=== PATIENT | female | born 1980 | race Caucasian/White ===

== ENCOUNTER 2019-09-03 22:00 | Emergency (ER) | payer BC ==
[~2019-09-03] VITALS: Ht 162.6 cm; Wt 59.9 kg
[2019-09-03] MEDS ORDERED: BACLOFEN5 MG PO (23:36)
[2019-09-03] MEDS ORDERED: ULTRAM 50MG TAB50 MG PO (23:36)
[2019-09-03 23:46] VITALS: BP 107/65
== END 2019-09-03 23:51 | disposition home or self-care (01) ==
LOC: ER 22:00
DX: S39.012A Strain of muscle, fascia and tendon of lower back, initial encounter (principal); F17.210 Nicotine dependence, cigarettes, uncomplicated; V43.52XA Car driver injured in collision with other type car in traffic accident, initial encounter; Y92.89 Other specified places as the place of occurrence of the external cause; Y93.89 Activity, other specified; Y99.8 Other external cause status

== ENCOUNTER 2019-10-21 17:39 | Emergency (ER) | payer BC ==
[~2019-10-21] VITALS: Ht 162.6 cm; Wt 59.9 kg
[~2019-10-21 17:39] MED LIST: BACLOFEN5 MG PO; ULTRAM 50MG TAB50 MG PO
[2019-10-21 20:09] LABS: ABSOLUTE NEUTROPHILS 1.7 thou/uL (1.4-8.2); BASOPHILS 0.9 % (0.0-2.0); HEMATOCRIT 36.8 % (37.0-47.0); HEMOGLOBIN 12.2 gm/dL (12.0-15.0); LYMPHOCYTES 57.5 % (24.0-44.0); MCH 31.2 pg (26.0-34.0); MCHC 33.3 g/dL (28.0-37.0); MCV 93.7 fL (80.0-100.0); MONOCYTES 5.7 % (1.0-8.0); PLATELET COUNT 216 thou/uL (150-400); POLYS 29.9 % (36.0-66.0); RBC 3.93 mil/uL (4.20-5.00); RDW 13.3 % (10.5-14.5); WBC 5.8 thou/uL (4.0-11.0)
[2019-10-21 20:12] LABS: URINE BILIRUBIN NEGATIVE (Negative); URINE BLOOD TRACE (Negative); URINE CLARITY CLEAR; URINE COLOR YELLOW; URINE GLUCOSE-RANDOM* NEGATIVE (Negative); URINE KETONES NEGATIVE (Negative); URINE LEUKOCYTES-REFLEX NEGATIVE (Negative); URINE NITRITE-REFLEX NEGATIVE (Negative); URINE PROTEIN (DIPSTICK) NEGATIVE (Negative); URINE SPECIFIC GRAVITY <= 1.005 (1.005-1.035); URINE UROBILINOGEN 0.2 E.U./dl (0.2-1.0)
[2019-10-21 20:13] LABS: CALCIUM 8.5 mg/dL (8.5-10.1); CREATININE 0.8 mg/dL (0.6-1.0); POTASSIUM 3.4 mmol/L (3.5-5.1)
[2019-10-21 20:19] LABS: ALBUMIN 3.7 g/dL (3.4-5.0); TOTAL BILIRUBIN 0.3 mg/dL (<0.1-1.0); TOTAL PROTEIN 7.1 g/dL (6.4-8.2)
[2019-10-21] MEDS ORDERED: BACLOFEN5 MG PO (20:49)
[2019-10-21] MEDS ORDERED: MOBIC7.5 MG PO (20:49)
[2019-10-21] MEDS ORDERED: ZOFRAN ODT4 MG PO (21:26)
[2019-10-21] MEDS ORDERED: TRAMADOL 50 MG50 MG PO (21:34)
[2019-10-21 21:51] VITALS: BP 108/56
== END 2019-10-21 21:52 | disposition home or self-care (01) ==
LOC: ER 17:39
PROVIDERS: Emergency Medicine; Nurse Practitioner Family
DX: R31.9 Hematuria, unspecified (principal); R10.9 Unspecified abdominal pain; M54.5 Low back pain; F17.210 Nicotine dependence, cigarettes, uncomplicated